=== PATIENT | female | born 1955 | race Caucasian/White ===

== ENCOUNTER → 2020-07-22 10:17 | Outpatient (CLI) | payer MEDICARE, SELFPAY ==
--- NOTE | 2020-07-22 | DI.MG.S_ITS ---
BILATERAL DIGITAL SCREENING MAMMOGRAM 3D/2D WITH CAD: 07/22/2020 CLINICAL: Routine screening. Comparison is made to exams dated: 01/13/2017 mammogram, 01/19/2018 mammogram, and 02/08/2019 mammogram - outside location. The tissue of both breasts is heterogeneously dense. This may lower the sensitivity of mammography. Current study was also evaluated with a Computer Aided Detection (CAD) system. No significant masses, calcifications, or other findings are seen in either breast. There has been no significant interval change. IMPRESSION: NEGATIVE There is no mammographic evidence of malignancy. A 1 year screening mammogram is recommended. This exam was interpreted at Station ID: [id number]. NOTE: For mammograms, a report in lay terms will be sent to the patient. Approximately 15% of breast malignancies will not be visualized mammographically. In the management of a palpable breast mass, a negative mammogram must not discourage biopsy of a clinically suspicious lesion. Electronically Signed By: Daniel ortega/maico:07/24/2020 07:41:21 letter sent: Normal Exam ACR BI-RADS Category 1: Negative 3341F
== END ==
PROVIDERS: PCP Physician Assistant; Referring Provider Physician Assistant; Visit Provider Physician Assistant
DX: Z12.31 Encounter for screening mammogram for malignant neoplasm of breast (principal)
CPT/HCPCS: 77063; 77067

== ENCOUNTER → 2020-12-04 12:53 | Outpatient (CLI) | payer MEDICARE, SELFPAY ==
[2020-12-04 16:24] LABS: COVID19 -Nasal RAPID Negative (Negative)
== END ==
PROVIDERS: PCP Physician Assistant; Visit Provider Student in an Organized Health Care Education/Training Program
DX: Z01.812 Encounter for preprocedural laboratory examination (principal); Z20.822 Contact with and (suspected) exposure to COVID-19
CPT/HCPCS: 87635; C9803

== ENCOUNTER → 2021-01-15 13:40 | Outpatient (CLI) | payer MEDICARE, SELFPAY ==
[2021-01-15 17:09] LABS: COVID19 -Nasal RAPID Negative (Negative)
== END ==
PROVIDERS: PCP Physician Assistant; Visit Provider Physician Assistant
DX: Z01.812 Encounter for preprocedural laboratory examination (principal); Z20.822 Contact with and (suspected) exposure to COVID-19
CPT/HCPCS: 87635; C9803

== ENCOUNTER 2021-01-17 12:40 | Day surgery (SDC) | payer MEDICARE, SELFPAY ==
--- NOTE | 2021-01-17 | PATH_ITS ---
[facility] Accession Number: [id number] . 01 Material submitted: . PART A: stomach - GASTRIC; GASTRIC POLYP PART B: esophagus - PROXIMAL/DISTAL ESOPHAGUS PART C: colon - RANDOM COLON PART D: colon - DESCENDING COLON POLYP . 01 Clinical history: . A) GASTRITITIS; RULE OUT H.PYLORI B) EOE C) DIARRHEA . 02 Diagnosis: A. Stomach, Polyp, Biopsy: Fundic gland polyp. Separate fragments of antral and body type mucosa with no significant diagnostic abnormality. Negative for Helicobacter by immunohistochemistry. Negative for intestinal metaplasia. Negative for dysplasia and malignancy. . B. Proximal/Distal, Esophagus, Biopsy: Squamous epithelium with no diagnostic abnormality. Intraepithelial eosinophils are not increased. Negative for dysplasia and malignancy. . C. Random Colon, Biopsies: Colonic mucosa with no diagnostic abnormality. Negative for active, chronic, and microscopic colitis. Negative for dysplasia and malignancy. . D. Descending Colon, Polyp, Biopsy: Hyperplastic polyp. [facility] 01/22/2021 1538 Local . 02 Electronically signed: . Loretta Mendiola MD, Pathologist NPI- [id number] . 01 Gross description: . Part A: GASTRIC; GASTRIC POLYP: Received in formalin are multiple fragment(s) of hooper, soft tissue measuring 1.0 x 0.4 x 0.1 cm in aggregate submitted entirely in 1 cassette(s) Part B: PROXIMAL/DISTAL ESOPHAGUS: Received in formalin are 3 fragment(s) of hooper, soft tissue measuring 0.4 x 0.2 x 0.1 cm to 0.2 x 0.2 x 0.2 cm submitted entirely in 1 cassette(s) Part C: RANDOM COLON: Received in formalin are multiple fragment(s) of hooper, soft tissue measuring 0.8 x 0.6 x 0.1 cm in aggregate submitted entirely in 1 cassette(s) Part D: DESCENDING COLON POLYP: Received in formalin is 1 fragment(s) of hooper, soft tissue measuring 0.2 x 0.2 x 0.2 cm submitted entirely in 1 cassette(s) /LAMAR 01/18/2021 0654 Local . 02 Microscopic: . A. An immunohistochemical stain was performed to evaluate for Helicobacter organisms and is negative. The control stain showed appropriate reactivity. . * This test was developed and its performance characteristics determined by [facility]. It has not been cleared or approved by the U.S. Food and Drug Administration. The FDA has determined that such clearance or approval is not necessary. This test is used for clinical purposes. It should not be regarded as investigational or for research. . 02 Pathologist provided ICD-10: R13.10, R19.7 . 02 CPT . 704620, 207133, 247314, 315085, Z22838 Performed at: 01 [facility] [address] [facility], [place], [place] [id number] MD Lew Castillo MD Phone: [phone] Performed at: 02 [facility] [place] [address] [address] [place], [place] [id number] MD Loretta Mendiola MD Phone: [phone]
[2021-01-17 13:13] VITALS: BP 153/87; PULSE 66; RESP 16; TEMP 36.4; O2SAT 98; BMI 43.5
[2021-01-17] MEDS: SODIUM CHLORIDE 0.9% 1,000 ML 70 ML IV (13:26)
--- NOTE | 2021-01-17 14:07 | PM.HP.1 ---
History of Present Illness History of Present Illness Date Patient Seen: 01/17/21 Time Patient Seen: 14:01 Chief complaint: SDC *$385 copay* Narrative: Patient is a very pleasant 65-year-old female who presented for EGD colonoscopy. She does have progressively worsening dysphagia. She also has a family history of gastric cancer in her grandmother. She is due for screening colonoscopy she also has chronic diarrhea. Patient History Medical History (Updated 01/17/21 @ 13:01 by Ayden Jimenez RN) Asthma Carpal tunnel syndrome Cyst of hand Dysphagia GE reflux Hypothyroidism Sarcoid Surgical History (Updated 01/17/21 @ 13:01 by Ayden Jimenez RN) History of hand surgery No history of previous surgery Status post trigger finger release Family & Social History Family History (Updated 01/17/21 @ 12:52 by Ayden Jimenez RN) Grandmother Stomach cancer Mother Hepatitis C Liver cancer Social History: household members significant other Tobacco & Substance use: Smoking Status Former smoker alcohol intake current alcohol intake frequency a few times a week Substance Use Type does not use Meds Home Medications and Allergies Home Medications Medication Instructions Recorded Confirmed Type azelastine 2 spray INTRANASAL BID 01/17/21 01/17/21 History clobetasol 1 applic TOPICAL PRN PRN 01/17/21 01/17/21 History esomeprazole magnesium [Nexium] 40 mg PO DAILY 01/17/21 01/17/21 History ipratropium bromide 2 spray INTRANASAL PRN PRN 01/17/21 01/17/21 History levothyroxine 50 mcg PO DAILY 01/17/21 01/17/21 History liothyronine 10 mcg PO DAILY 01/17/21 01/17/21 History losartan 25 mg PO DAILY 01/17/21 01/17/21 History metoprolol succinate 50 mg PO DAILY 01/17/21 01/17/21 History montelukast 10 mg PO DAILY 01/17/21 01/17/21 History nystatin 1 applic TOPICAL DAILY PRN 01/17/21 01/17/21 History pantoprazole 40 mg PO BEDTIME 01/17/21 01/17/21 History tacrolimus 1 applic TOPICAL PRN PRN 01/17/21 01/17/21 History Allergies Allergy/AdvReac Type Severity Reaction Status Date / Time gluten Allergy Blister Verified 01/17/21 12:51 morphine AdvReac I had Verified 01/17/21 12:46 morphine once and hated it. Review of Systems Review of Systems ROS: Yes All systems reviewed with the patient and are negative except as otherwise documented Exam Vital Signs (past 8 hours): - 01/17/21 13:13 Temperature 97.5 F L Pulse Rate 66 Respiratory Rate 16 Blood Pressure 153/87 H Pulse Oximetry 98 Oxygen Delivery Method Room Air Oxygen Flow Rate 0 Const General: cooperative, healthy appearing, comfortable and well developed Nutritional Appearance: obese Orientation: alert, awake and oriented x3 HENMT Head: normal to inspection, normocephalic and atraumatic Resp Effort & Inspection: normal respiratory effort and able to speak in complete sentences Auscultation: clear to auscultation bilaterally Cardio Rate: regular rate Rhythm: regular rhythm Heart Sounds: S1 normal and S2 normal GI Palpation: soft Auscultation: normal bowel sounds Psych Appearance: grossly normal Mental Status: mental status grossly normal Judgment: judgment good Assessment & Plan Assessment & Plan narrative: 1. Dysphagia 2. Family history gastric cancer 3. Screening colonoscopy 4. Chronic diarrhea EGD and colonoscopy today, further recommendations to follow
[2021-01-17] MEDS: LIDOCAINE 4% SOLN 50 ML 20 ML TOP (14:08)
[2021-01-17] MEDS: MIDAZOLAM 5 MG/5 ML VIAL IV (14:09)
[2021-01-17] MEDS: fentaNYL 250 MCG/5 ML INJ IV (14:09)
--- NOTE | 2021-01-17 14:42 | P.OP.ENDO_ITS ---
Operative Date/Time/Diagnoses Date of procedure: 01/17/21 Time of procedure: 14:11 Procedure Notes Procedure in detail: Surgeon: Veena Mims DO Procedure: Esophagogastroduodenoscopy with biopsy and colonoscopy with polypectomy and biopsies Preoperative diagnosis: 1. Esophageal dysphagia 2. Family history gastric cancer 3. Screening colonoscopy 4. Incidental chronic diarrhea Postoperative diagnosis: -gastritis, biopsied to rule out H pylori -gastric polyps -esophageal changes suspicious for eosinophilic esophagitis, biopsied -descending colon polyp 3 mm removed with forceps -normal-appearing colon mucosa biopsied to rule out microscopic colitis -normal-appearing terminal ileum Medications: Conscious sedation using 5 mg IV of Midazolam and 175 mcg IV of Fentanyl (total for both procedures) Preanesthesia Assessment An H and P was performed/updated and the Px?s ASA class is 2. The procedure was discussed in detail with the patient. The potential risks and complications including infection, bleeding, missed lesions, perforation, need for surgery in case of perforation, prolonged hospital stay, and were explained. A brief question and answer period was allotted and once all questions were answered, informed consent was obtained. The patient was brought back to the procedure room and placed on standard monitoring. The patient?s vital signs were monitored continuously throughout the entire procedure. Prior to starting, a timeout was performed to confirm the patient?s identity, allergies, medications, and procedure. Procedure in detail The patient was placed in left lateral decubitus position and a bite block was i nserted. The tip of the upper endoscope was placed into the mouth and advanced without difficulty under direct visualization into the esophagus. Esophagus: Esophageal mucosal changes suspicious for eosinophilic esophagitis. Biopsies of the distal and proximal esophagus were obtained. No stricture was identified Stomach: Gastritis in the antrum body. Biopsies were obtained to rule out H pylori. Multiple gastric polyps throughout the stomach were identified consistent with fundic gland polyps, biopsied Retroflexion was unremarkable Duodenum: Normal-appearing duodenum After the upper endoscopy, preparations were made for the colonoscopy. Once adequate sedation was obtained a HESHAM was performed. The digital rectal examination did not reveal any palpable lesions. The tip of the colonoscope was placed in the anal canal and advanced without difficulty all the way to the terminal ileum and cecum which was identified by the appendiceal orifice and the ileocecal valve. Colon mucosa appeared unremarkable. Random colon biopsies were obtained to rule out microscopic colitis. Terminal ileum appeared unremarkable. 3 mm polyp was identified in the descending colon removed with forceps. The patient tolerated the procedure well and will be brought back to the recovery area to be discharged once criteria are met. The prep was judged to be good/excellent and adequate to identify polyps less than 5 mm. The withdrawal time was 9 min. The total physician intraservice time was 25min. Complications There were no complications and estimated blood loss was minimal. Recommendations Resume previous diet Continue outpatient medications Follow-up pathology results Repeat colonoscopy will be determined after pathology results are reviewed Follow-up with Dr. Brown An emergency contact number was given to the patient for any complications related to the procedure
[2021-01-17 14:43] VITALS: BP 148/79; PULSE 62; RESP 16; TEMP 36.6; O2SAT 98
[2021-01-17 14:48] VITALS: BP 134/72; PULSE 66; RESP 16; O2SAT 98
[2021-01-17 14:54] VITALS: BP 140/76; PULSE 59; RESP 16; O2SAT 98
[2021-01-17 15:07] VITALS: BP 152/74; PULSE 64; RESP 16; O2SAT 98
[2021-01-17 15:17] VITALS: BP 155/85; PULSE 63; RESP 14; TEMP 36.3; O2SAT 100
== END 2021-01-17 15:30 | disposition home or self-care (01) ==
PROVIDERS: PCP Internal Medicine; Referring Provider Student in an Organized Health Care Education/Training Program; Visit Provider Student in an Organized Health Care Education/Training Program
PROC: 0DJ08ZZ Inspection of Upper Intestinal Tract, Via Natural or Artificial Opening Endoscopic (ICD-10-PCS; CPT 43235; principal; 2021-01-17 14:00)
PROC: 0DJD8ZZ Inspection of Lower Intestinal Tract, Via Natural or Artificial Opening Endoscopic (ICD-10-PCS; CPT 45378; 2021-01-17 14:00)
DX: Z12.11 Encounter for screening for malignant neoplasm of colon (principal); R13.10 Dysphagia, unspecified; K31.7 Polyp of stomach and duodenum; K63.5 Polyp of colon
CPT/HCPCS: 45380; 43239; J2250; J3010

== ENCOUNTER → 2021-07-23 14:56 | Outpatient (CLI) | payer MEDICARE, SELFPAY ==
--- NOTE | 2021-07-23 14:57 | DI.MG.S_ITS ---
BILATERAL DIGITAL SCREENING MAMMOGRAM 3D/2D WITH CAD: 07/23/2021 CLINICAL: Routine screening. Comparison is made to exams dated: 07/22/2020 mammogram - [facility], 02/08/2019 mammogram, and 01/21/2018 mammogram - outside location. The tissue of both breasts is heterogeneously dense. This may lower the sensitivity of mammography. Current study was also evaluated with a Computer Aided Detection (CAD) system. No significant masses, calcifications, or other findings are seen in either breast. There has been no significant interval change. IMPRESSION: NEGATIVE There is no mammographic evidence of malignancy. A 1 year screening mammogram is recommended. This exam was interpreted at Station ID: [id number]. NOTE: For mammograms, a report in lay terms will be sent to the patient. Approximately 15% of breast malignancies will not be visualized mammographically. In the management of a palpable breast mass, a negative mammogram must not discourage biopsy of a clinically suspicious lesion. Electronically Signed By: Mario Alberto Hui M.D., jr/maico:07/23/2021 15:23:56 letter sent: Normal Exam ACR BI-RADS Category 1: Negative 3341F
== END ==
PROVIDERS: PCP Nurse Practitioner; Referring Provider Nurse Practitioner; Visit Provider Nurse Practitioner
DX: Z12.31 Encounter for screening mammogram for malignant neoplasm of breast (principal)
CPT/HCPCS: 77063; 77067

== ENCOUNTER → 2022-04-19 11:41 | Outpatient (CLI) | payer MEDICARE, SELFPAY ==
--- NOTE | 2022-04-19 11:44 | DI.MRI.S_ITS ---
PROCEDURE: MR KNEE LT WO CON INDICATIONS: INTERNAL DERANGEMENT LEFT KNEE TECHNIQUE: Noncontrast sagittal PD fast spin echo and T2 fast spin echo with fat saturation, sagittal 3-D FLASH with fat saturation; coronal T1 spin echo and PD fast spin echo with fat saturation, and axial PD fast spin echo with fat saturation through the knee. COMPARISON: [facility], CR, XR KNEE ARTHRITIC SERIES BI, 03/06/2022, 10:57. FINDINGS: Image quality: Images are mildly degraded by patient motion despite repeat sequences being acquired. Diagnostic information is obtained. Anterior Cruciate Ligament: Intact. Posterior Cruciate Ligament: Intact. Medial Collateral Ligament: Mild thickening of the proximal medial collateral ligament is most likely secondary to a remote prior low-grade sprain. Lateral Collateral Ligament: Intact. Medial Meniscus: There is horizontal oblique tearing of the body of the medial meniscus extending to the inner third of the femoral articular surface. There is suspected component involving the tibial articular surface and the posterior horn. Lateral Meniscus: There is horizontal oblique tearing of the anterior horn of the lateral meniscus extending to the inner third of the tibial articular surface. Medial and Lateral Tendons: The semimembranosus tendon insertions and meniscocapsular junction appear intact. Visualized portions of the pes anserinus tendons appear normal. No abnormal bursal fluid. The long and short heads of the biceps femoris tendon appear intact. The popliteus tendon appears intact. No signs of posterolateral corner injury. Iliotibial band appears normal. Anterior Structures: Mild patella jackie. The quadriceps and patellar tendons appear intact. No patellar subluxation. A mildly congenitally shallow trochlear groove is seen without patellar subluxation. The tibial tubercle-trochlear groove distance is within normal limits. Mild edema is seen at the superolateral aspect of Hoffa's fat pad. Bones: No acute trabecular bone injury or fracture. Medial Femorotibial Cartilage: There is at least high-grade partial thickness and suspected full-thickness cartilage loss in the weight-bearing portion of the medial femorotibial compartment with marginal osteophyte formation, not well evaluated on this exam due to patient motion. Lateral Femorotibial Cartilage: Small marginal osteophytes are present. No large focal cartilage defect identified. Mild surface irregularity is seen in the central weight-bearing portion. Patellofemoral Cartilage: Full-thickness cartilage loss is seen at the median ridge and medial facet of the patella as well as the medial femoral trochlea with subchondral cystic changes and marginal osteophyte formation. Soft Tissues: There is a small joint effusion. A small to medium size medial popliteal cyst is present. The musculature surrounding the knee is normal in bulk. Nonspecific prepatellar subcutaneous soft tissue edema is present. IMPRESSION: 1. Full-thickness cartilage loss throughout large portions of the anterior patellofemoral compartment with subchondral cystic changes. At least grade 3 and likely grade 4 cartilage loss is seen in the medial femorotibial compartment. There is mild grade 2 chondromalacia at the lateral compartment. Tricompartmental marginal osteophytes are present. 2. Complex tearing of the medial meniscus with horizontal oblique component extending to the femoral and tibial articular surfaces. 3. Horizontal oblique tear of the anterior horn of the lateral meniscus extending to the inner third of the tibial articular surface. 4. Chronic grade 2 sprain of the proximal medial collateral ligament. 5. Mild patella jackie. Mildly congenitally shallow trochlear groove. Mild edema at the superolateral aspect of Hoffa's fat pad can be seen in the setting of lateral femoral condyle-patellar tendon friction syndrome. 6. Small joint effusion. Small medial popliteal cyst. Dictated by: Antione Cintron M.D. on 04/19/2022 at 13:33 Approved by: Antione Cintron M.D. on 04/19/2022 at 13:57
== END ==
PROVIDERS: PCP Nurse Practitioner; Referring Provider Orthopaedic Surgery; Visit Provider Orthopaedic Surgery
DX: S83.242A Other tear of medial meniscus, current injury, left knee, initial encounter (principal); M23.92 Unspecified internal derangement of left knee; M25.462 Effusion, left knee
CPT/HCPCS: 73721

== ENCOUNTER → 2022-08-28 14:34 | Outpatient (CLI) | payer MEDICARE, SELFPAY ==
[2022-08-28 14:56] LABS: Appearance Urine UA CLEAR; Bilirubin Urine UA NEGATIVE (NEGATIVE); Color Urine UA YELLOW; Glucose Urine UA NEGATIVE (Negative); Ketones Urine UA NEGATIVE (NEGATIVE); Leukocyte Esterase Urine UA NEGATIVE (NEGATIVE); Nitrite Urine UA NEGATIVE (Negative); Occult Blood Urine UA NEGATIVE (Negative); Protein Urine UA NEGATIVE (Negative); Specific Gravity Urine UA <=1.005 (1.000-1.035); Urobilinogen Urine UA 0.2 E.U./dL (0.2)
[2022-08-28 15:09] LABS: Bacteria Urine Few (2-10); Culture Indicated Urine Cult Not Indicated; RBC Urine None Seen (0-5/HPF); Squamous Epithelial Cell Urine 5-10 /HPF (0-5/HPF); WBC Urine 0-1/HPF (0-5/HPF)
[2022-08-28 15:33] LABS: Add Manual Diff / Slide Review NO; Basophils Absolute Auto 100 /uL (0-100); Basophils Percent Auto 1.1 % (0-2); Eosinophils Absolute Auto 200 /uL (0-450); Eosinophils Percent Auto 4.1 % (2-4); Hematocrit 40.6 % (36-46); Hemoglobin 13.6 g/dL (12.0-16.0); Lymphocytes Absolute Auto 1400 /uL (1100-4500); Lymphocytes Percent Auto 26.9 % (25-40); Mean Corpuscular HGB Conc 33.6 % (30-36); Mean Corpuscular Hemoglobin 30.6 PG (26-34); Mean Corpuscular Volume 91.1 fL (80-100); Monocytes Absolute Auto 500 /uL (0-900); Monocytes Percent Auto 8.8 % (3-14); Neutrophils Absolute Auto 3200 /uL (1500-7000); Neutrophils Percent Auto 59.1 % (50-75); Platelet Count 214 X10^3/uL (150-400); Red Blood Cell Count 4.46 X10^6/uL (4.0-5.2); Red Cell Distribution Width 14.4 % (11.6-14.8); White Blood Cell Count 5.4 X10^3/uL (4.5-11.0)
[2022-08-28 15:49] LABS: Hemoglobin A1C% w Est Avg Glu 5.3 % (4.0-6.0)
[2022-08-28 15:54] LABS: BUN Creatinine Ratio 18.7 (6-22); Blood Urea Nitrogen 14 mg/dL (7-17); Calcium 9.4 mg/dL (8.4-10.2); Carbon Dioxide 29 mmol/L (22-32); Chloride 105 mmol/L (98-107); Estimated Glomerular Filt Rate > 60 mL/min (>60); Glucose 100 mg/dL (80-110); HEMOLYSIS < 15 (0-50); Potassium 4.7 mmol/L (3.4-5.1); Sodium 141 mmol/L (137-145)
== END ==
PROVIDERS: PCP Nurse Practitioner; Referring Provider Orthopaedic Surgery; Visit Provider Orthopaedic Surgery
DX: Z01.818 Encounter for other preprocedural examination (principal); R73.9 Hyperglycemia, unspecified; Z01.812 Encounter for preprocedural laboratory examination; N39.0 Urinary tract infection, site not specified
CPT/HCPCS: 36415; 80048; 81001; 83036; 85025; 93005

== ENCOUNTER → 2022-09-16 14:16 | Outpatient (CLI) | payer MEDICARE, SELFPAY ==
--- NOTE | 2022-09-16 | DI.MG.S_ITS ---
BILATERAL DIGITAL SCREENING MAMMOGRAM 3D/2D WITH CAD: 09/16/2022 CLINICAL: Routine screening. Comparison is made to exams dated: 07/23/2021 mammogram, 07/22/2020 mammogram - [facility], and 02/08/2019 mammogram - outside location. There are scattered areas of fibroglandular density in both breasts (category b / 25%-50% glandular tissue). Current study was also evaluated with a Computer Aided Detection (CAD) system. No significant masses, calcifications, or other findings are seen in either breast. There has been no significant interval change. IMPRESSION: NEGATIVE There is no mammographic evidence of malignancy. A 1 year screening mammogram is recommended. Based on the Tyrer Cuzick model (a risk assessment model) the patient's lifetime risk is 4.7% and her 10 year risk is 2.7%. According to the ACR, ACS, and NCCN guidelines, an annual breast MRI exam along with mammogram is recommended if the patient's lifetime risk is 20% or greater. This exam was interpreted at Station ID: [id number]. NOTE: For mammograms, a report in lay terms will be sent to the patient. Approximately 15% of breast malignancies will not be visualized mammographically. In the management of a palpable breast mass, a negative mammogram must not discourage biopsy of a clinically suspicious lesion. Electronically Signed By: Antonio michelle/maico:09/16/2022 15:23:31 letter sent: Normal Exam ACR BI-RADS Category 1: Negative 3341F
== END ==
PROVIDERS: PCP Nurse Practitioner; Referring Provider Nurse Practitioner; Visit Provider Nurse Practitioner
DX: Z12.31 Encounter for screening mammogram for malignant neoplasm of breast (principal)
CPT/HCPCS: 77063; 77067

== ENCOUNTER 2022-10-31 09:12 | Day surgery (SDC) | payer OTHER, SELFPAY ==
[2022-10-24 12:41] VITALS: BMI 40.9
[2022-10-31] VITALS (13 sets, daily range): BP systolic 108–172; BP diastolic 55–89; PULSE 64–83; RESP 12–20; TEMP 35.5–36.2; O2SAT 96–99; BMI 40.9; BMI 41.5
--- NOTE | 2022-10-31 06:00 | DI.RAD.S_ITS ---
PROCEDURE: XR KNEE LT 1TO2V INDICATIONS: TKA TECHNIQUE: 2 view(s) of the knee acquired. COMPARISON: None. FINDINGS: Bones: Patient is status post knee joint arthroplasty. Hardware components are in expected positions. Visualized bony structures are intact. Soft tissues: Overlying postoperative changes are noted. IMPRESSION: Status post knee arthroplasty. Dictated by: Melani Coulter M.D. on 10/31/2022 at 13:02 Approved by: Melani Coulter M.D. on 10/31/2022 at 13:02
[2022-10-31] MEDS: VANCOMYCIN 1,000 MG/200 ML PIGGYBACK 200 MG IV (09:32)
[2022-10-31] MEDS: LACTATED RINGERS 1,000 ML 42 ML IV (09:32)
[2022-10-31] MEDS: ACETAMINOPHEN 325 MG TABLET 975 MG PO (09:43)
[2022-10-31] MEDS: PREGABALIN 75 MG CAPSULE PO (09:44)
[2022-10-31] MEDS: CELECOXIB 200 MG CAPSULE PO (09:44)
--- NOTE | 2022-10-31 10:09 | PM.PREOP ---
Pre-operative Note Interval Note History & Physical reviewed/Exam performed by Physician: Yes Changes to H&P: No
--- NOTE | 2022-10-31 10:10 | PM.OP.1 ---
Operative Date/Time/Diagnoses Date of procedure: 10/31/22 Time of procedure: 11:00 Pre-op diagnosis: Left knee OA Post-op diagnosis: same Procedure & Clinicians Procedure: Left total knee arthroplasty Same procedure as scheduled: Yes Indications: The patient has had progressively worsening left knee pain with radiographic changes consistent with arthritis. Non-operative management has failed and the patient has requested total knee replacement. The risks, benefits and alternatives to surgery were discussed with the patient prior to proceeding. Risks discussed included, but were not limited to, failure to relieve pain, stiffness, infection, nerve damage, deep venous thrombosis, pulmonary embolism, stroke, coma, heart attack, permanent paralysis and , as well as the potential need for eventual revision of the prosthetic. Surgeon: Olivia Regalado Live Hanger: Benton Hernandez Anesthesia Type: General and Spinal Operative Notes Findings: Severe left knee osteoarthritis, adequate stability Closure Type: primary Specimen(s): none sent Prosthetic devices, grafts, tissues, transplants, or devices: Regalado and Nephew James BCS 2 size 4 femur, size 3 tibia, +9 poly, 32 x 7-1/2 mm patella round Estimated Blood Loss (mL): 250 Blood products transfused: none Tourniquet time (min): 67 Procedure in detail: The patient was seen in the pre-operative area, where the patient identified the left knee as the operative site and this was marked with my initials. The patient received pre-operative antibiotics, and was taken to the operating room and placed on the operative table in the supine position. After satisfactory anesthesia, a full decator operator out was performed. The left leg was encircled with a tourniquet about the proximal thigh, and the leg was prepared from the toes to the tourniquet with ChloroPrep in the usual fashion and draped through sterile drapes. The leg was elevated and exsanguinated with Eschmark bandage and the tourniquet inflated to [250] mmHg pressure. The knee was approached through an approximately 18 cm incision centered over the patella and carried into the knee through a medial parapatellar arthrotomy. A portion of the medial and lateral meniscus was resected. Soft tissue was carefully mobilized around the patella the patella was measured with a caliper. Bone was resected from the patella and the patellar height was reconstituted with up an appropriate sized patellar component. A cover was then placed on the patella. A small amount of additional medial and lateral meniscus was resected. The distal femur was cut at 5?. A [+2] cut was used. It looked like an appropriate distal femoral cut and the cut was made without difficulty. An extramedullary guide was used for the tibial cut. 10 mm was resected off the least affected side.The tibia was prepared. The rotation was assessed. The patient was placed in extension residual medial and lateral meniscus as well as any residual bone was carefully resected. [No] additional tibia was resected. Hemostasis was achieved especially posteriorly. Additional local was injected into the posterior capsule. The extension gap was assessed and additional releases for gap balancing were performed as necessary. It was checked with the gap plain clothes police officer. The femoral component was trial was placed and the notch was finished. The rotation was assessed and the appropriate size femoral guide was placed on the distal femur and finishing cuts were made. There was no evidence of notching. The anterior, posterior and chamfer cuts were then made. The posterior osteophytes and soft tissues were then removed. The posterior capsule was injected with part of a mixture of 60 ml 0.25% Marcaine mixed with 20 ml Exparel for post operative pain control. The remainder of this mixture was injected into the capsule and subcutaneous tissues during cement curing. The tibial and femoral components were then placed and the knee placed through a range of motion. Range of motion was [0-130], with good stability throughout the range. The trials were then removed, and the tibia was finished. The bone was prepared with pulsatile lavage, and dried with a sponge. Cement was applied and the final prosthetics placed. Excess cement was removed during and after cement curing. A brief Betadine soak was performed. After confirming there was no extruded cement posteriorly, the final tibial insert was placed. The knee was copiously irrigated and the tourniquet deflated. Hemostasis was obtained with the [Aquamantys system]. A drain was placed and brought out superolaterally. The capsule was closed with interrupted nonabsorbable suture. The subcutaneous layer was closed with barbed sutures, and the skin with a running 3-0 V-Lock suture and skin ja. An Aquacel Ag dressing was applied and the patient was taken to recovery having tolerated the procedure well. Complications: none Post-operative Condition: stable Disposition: Acute Care Plan for aftercare: The patient will be maintained on a standard total knee replacement protocol with weight bearing as tolerated. The patient will receive aspirin and sequential compression devices for DVT prophylaxis. The patient will be discharged home when safe for the home environment.
[2022-10-31 10:38] LABS: COVID19 -Nasal RAPID Negative (Negative)
[2022-10-31] MEDS: CEFAZOLIN 2 GM/100 ML PREMIX 100 ML IV ×2 (10:50→18:34)
[2022-10-31] MEDS: TRANEXAMIC ACID 1,000 MG VIAL 2000 MG INJ ×2 (11:01→12:11)
--- NOTE | 2022-10-31 11:07 | SUR.OPER ---
Supine on padded OR bed. Pillow under head, arms secured on padded armboards <90 degree abduction. Safety belt across torso. Non-operative leg secured with tape over blanket over lower leg. Operative leg secured in [place]. Foam padded brace at thigh of operative leg.
[2022-10-31] MEDS: BUPIVACAINE 0.25% (PF) 60 ML, EPINEPHrine 0.3 MG INJ (11:14)
[2022-10-31] MEDS: BUPIVACAINE LIPOSOME 266 MG/20 ML VIAL INJ (11:14)
[2022-10-31] MEDS: BUPIVACAINE 0.25% (PF) VIAL 30 ML INJ (11:17)
[2022-10-31] MEDS: IBUPROFEN 400 MG TABLET PO ×3 (13:59→20:10)
[2022-10-31] MEDS: ACETAMINOPHEN 325 MG TABLET 650 MG PO ×2 (14:00→20:02)
[2022-10-31] MEDS: LACTATED RINGERS 1,000 ML 100 ML IV (14:04)
[2022-10-31] MEDS: ONDANSETRON 4 MG/2 ML INJ IV (16:24)
[2022-10-31] MEDS: OXYCODONE IR 5 MG TABLET PO ×2 (16:59→20:01)
--- NOTE | 2022-10-31 17:35 | PT.IIE ---
Current Diagnoses Unilateral primary osteoarthritis, left knee (10/31/22) Surgery Performed Operation Date: 10/31/22 11:15 Actual Procedures p Total Knee Arthroplasty(Left) - Olivia Regalado MD Surgical History (Last Updated 10/24/22 @ 13:29 by Oriana Russell, RN) History of carpal tunnel surgery of left wrist (11/2013) History of carpal tunnel surgery of right wrist (09/2013) History of esophagogastroduodenoscopy (EGD) History of hand surgery (2011) Hx of hand surgery (09/2017) Hx of LASIK Hx of nasal septoplasty (01/25/22) Status post trigger finger release Medical History (Last Updated 10/24/22 @ 13:39 by Oriana Russell, RN) Acid reflux Asthma Carpal tunnel syndrome Cyst of hand Dysphagia GE reflux History of COVID-19 (~06/2022) HTN (hypertension) Hypothyroidism FRANCISCO on CPAP Osteoarthritis Pre-diabetes Sarcoid Scar tissue Sensitive skin Skin cancer Physical Therapy Inpatient Evaluation/Re-Eval M1 PT/OT-IP Prior Functional Status Start: 10/31/22 16:35 Freq: NEEDED Status: Active Protocol: Document 10/31/22 17:25 [facility] (Rec: 10/31/22 17:35 [facility] [id number]) Medical Review Prior Functional Status Medical History Reviewed Yes Diet/Fluid Consistency Regular Communication communication with nurse during treatment, pt given her pain meds Mobility and Gait IND Social History Household Members significant other Living Arrangements House Number of Floors (Floors) One Floor Number of Stairs To Enter/Railing? 3 Home Environment Standard Height Toilet Home Equipment Front Wheel Walker M2 PT-IP Current Condition Start: 10/31/22 16:35 Freq: NEEDED Status: Active Protocol: Document 10/31/22 17:25 [facility] (Rec: 10/31/22 17:35 [facility] [id number]) Physical Therapy Current Condition Current Condition Evaluation Date 10/31/22 Treatment Diagnosis left TKA Onset Date 10/31/22 M3 PT-IP Subjective Start: 10/31/22 16:35 Freq: NEEDED Status: Active Protocol: Document 10/31/22 17:25 [facility] (Rec: 10/31/22 17:35 [facility] [id number]) Subjective Physical Therapy Visit Type Type Initial Evaluation Visit Start Time 16:35 Visit Stop Time 17:15 Total Visit Minutes 40 Physical Therapy Visit Comments Patient Comments pt is sitting up in bed comfortably, she rates pain 3/ 10 Therapy Pain Assessment Pain When Pain Assessed At Rest Pain Present Pain Present Pain Reported Location left knee Intensity 3 Scale Used Numeric (0 - 10) M4 PT-IP Mobility and Gait Start: 10/31/22 16:35 Freq: NEEDED Status: Active Protocol: Document 10/31/22 17:25 [facility] (Rec: 10/31/22 17:35 [facility] [id number]) PT-Bed Mobility Assessment Rolling Type of Rolling Roll to Left Level of Assist Standby Assistance Supine to Sit Supine to Sit Standby Assistance Scooting Scooting to Edge of Bed Contact Guard Assistance PT-Transfer Assessment Sit to and From Stand Sit to and from Stand Contact Guard Assistance Equipment Transfer Assistive Device Gait Belt,Front Wheeled Walker Orthotic/Prosthetic Devices or Brace: No Transfers Transfer Destination Bed Transfer Technique pt ambulated to bathroom and then bedside chair Transfer Ability Level of Assist Contact Guard Assistance Comments Mobility Comments pt demonstrates CGA for all upright mobility, she ambualted to the bathroom and had a successful void then ambulated to bed side chair. Gait Assessment Gait Gait Assistance Required: Contact Guard Assist Distance (Feet) 15 Able to Maintain Weight Bearing Status Yes During Gait Assistive Devices Assistive Device Gait Belt,Front Wheeled Walker Orthotic/Prosthetic Devices or Brace: No Gait Deviations General Gait Pattern Decreased Stride Length,Step- to Gait Factors Limiting Gait Function Factors Limiting Gait Function Decreased Strength,Limited Range of Motion,Pain Comments Gait Comments pt was able to ambulate in room with CGA and no additional pain using a fww and gait belt. She ambulated to the bathroom and then to the bedside chair PT-Balance Assessment Sitting Balance and Reactions Static Sitting Balance Ability Normal Dynamic Sitting Balance Ability Normal Standing Balance and Reactions Static Standing Balance Ability Good Dynamic Standing Balance Ability Good M5 PT-IP Objective Assessments Start: 10/31/22 16:35 Freq: NEEDED Status: Active Protocol: Document 10/31/22 17:25 [facility] (Rec: 10/31/22 17:35 [facility] [id number]) Orientation Orientation/Cognition Level of Alertness Alert Gross Range of Motion Upper Extremity ROM Assessment Within Functional Limits Lower Extremity ROM Assessment Left Impaired Strength Upper Extremity Strength Assessment Within Functional Limits Lower Extremity Strength Assessment Left Impaired Coordination Assessment Gross Coordination Gross Coordination WNL Sensation Assessment Sensation Gross Sensation WNL M6 PT-IP Treatment Start: 10/31/22 16:35 Freq: NEEDED Status: Active Protocol: Document 10/31/22 17:25 [facility] (Rec: 10/31/22 17:35 [facility] [id number]) Physical Therapy Treatment Exercises Exercises Ankle Pumps,Quad Sets,Heel Slides,Straight Leg Raises Education Education Provided Post-Op Packet M7 PT-IP Assessment and Plan Start: 10/31/22 16:35 Freq: NEEDED Status: Active Protocol: Document 10/31/22 17:25 [facility] (Rec: 10/31/22 17:35 [facility] [id number]) PT Summary Assessment and Plan Potential Rehabilitation Potential Excellent Status of Condition at Evaluation Stable Summary Impairments Pain,ROM,Strength,Gait, Activity Tolerance Assessment Summary Yuli is a 67 year old female day one s/o left TKA. Pt did very well with PT. Her pain was a 3/10 at rest and did not increase with bed mobility, transfers, or gait. Pt was SBA for all bed mobility and CGA for gait in room with fww. She ambulated to the bathroom and was able to sit on the toilet to void. Pt then ambulated to the bed side chair where she was positioned comfortably and ice was placed on her left knee. Her dinner was delivered and tray was placed within reach for her as well as her call light. Pt has 3 steps to get up to her house with rail. She will need to practice stairs in the am prior to DC with PT. Her daughter will be staying with her this next week at home and she then has outpatient PT set up for the following week Goals Bed Mobility Goal Independent Transfer Goal Standby Assistance Gait Goal Contact Guard Assistance Gait Distance 50 feet Other Goals pt is able to ambulate up and down 3 steps Days to Meet Goals 5 Frequency of Treatment Frequency Of Treatment Twice a Day Treatment Plan Physical Therapy Treatment Plan Transfer Training,Gait Training,Therapeutic Exercise Other Recommendations and Next Treatment stair training next visit Focus prior to DC home Weight Bearing Status Weight Bearing Status Weight Bear as Tolerated Recommendations To Nursing Amount of Assist Needed Standby Assistance Discharge Recommendations PT Discharge Recommendations Home Transportation Needs at Discharge Private Vehicle
[2022-10-31] MEDS: DOCUSATE 100 MG CAPSULE PO (20:09)
[2022-10-31] MEDS: ASPIRIN EC 81 MG TABLET PO (20:09)
[2022-10-31] MEDS: LOSARTAN 25 MG TABLET PO (20:10)
[2022-10-31] MEDS: PANTOPRAZOLE DR 40 MG TABLET PO (20:50)
[2022-11-01 00:21] VITALS: BP 146/71; PULSE 75; RESP 18; TEMP 36.1; O2SAT 93
[2022-11-01] MEDS: OXYCODONE IR 5 MG TABLET PO ×4 (00:28→12:56)
[2022-11-01] MEDS: IBUPROFEN 400 MG TABLET PO ×4 (00:28→12:55)
[2022-11-01] MEDS: ACETAMINOPHEN 325 MG TABLET 650 MG PO ×3 (00:31→12:56)
[2022-11-01] MEDS: CEFAZOLIN 2 GM/100 ML PREMIX 100 ML IV (03:12)
[2022-11-01 05:02] VITALS: BP 132/67; PULSE 68; RESP 18; TEMP 36.2; O2SAT 97
[2022-11-01] MEDS: LEVOTHYROXINE 50 MCG TABLET PO (05:41)
[2022-11-01] MEDS: PANTOPRAZOLE DR 40 MG TABLET PO (05:41)
[2022-11-01 06:08] LABS: Hematocrit 36.7 % (36-46); Hemoglobin 12.6 g/dL (12.0-16.0)
--- NOTE | 2022-11-01 06:49 | PM.DS.1 ---
History of Present Illness History of Present Illness Date Patient Seen: 11/01/22 Time Patient Seen: 06:49 Chief complaint: Left Total Knee Arthroplasty 10/31 Narrative: Operative Date/Time/Diagnoses Date of procedure: 10/31/22 Time of procedure: 11:00 Pre-op diagnosis: Left knee OA Post-op diagnosis: same Procedure & Clinicians Procedure: Left total knee arthroplasty Same procedure as scheduled: Yes Indications: The patient has had progressively worsening left knee pain with radiographic changes consistent with arthritis. Non-operative management has failed and the patient has requested total knee replacement. The risks, benefits and alternatives to surgery were discussed with the patient prior to proceeding. Risks discussed included, but were not limited to, failure to relieve pain, stiffness, infection, nerve damage, deep venous thrombosis, pulmonary embolism, stroke, coma, heart attack, permanent paralysis and , as well as the potential need for eventual revision of the prosthetic. Surgeon: Olivia Regalado Scientific Programmer: Benton Hernandez Anesthesia Type: General and Spinal Operative Notes Findings: Severe left knee osteoarthritis, adequate stability Closure Type: primary Specimen(s): none sent Prosthetic devices, grafts, tissues, transplants, or devices: Regalado and Nephew James BCS 2 size 4 femur, size 3 tibia, +9 poly, 32 x 7-1/2 mm patella round Estimated Blood Loss (mL): 250 Blood products transfused: none Tourniquet time (min): 67 Discharge Providers Provider Discharge Date: 11/01/22 Primary care physician: MAIKOL Juares Consults: 10/31/22 06:00 Consult to Anesthesiology Routine Comment: Consulting Provider: Anesthesiologist Reason for consultation: Regional block for post operative pain control 10/31/22 13:03 Consult to Discharge Planning Routine Comment: Consult to Physical Therapy Evaluate & Treat Comment: Physician Instructions: postop TKA protocol Discharge provider: Beth Orourke PA-C Summary Hospital Course Discharge Diagnosis: Left knee osteoarthritis, s/p left total knee arthroplasty Hospital Course: Ms Mendieta's hospital course was unremarkable. On POD# 1 she was feeling well and wanted to go home. She was eating and voiding without difficulty and her pain was well-controlled with oral medication. She was evaluated by PT during her stay and they felt she was appropriate for discharge home. Exam Vital Signs (past 8 hours): - 11/01/22 00:21 11/01/22 05:02 Temperature 96.9 F L 97.1 F L Pulse Rate 75 68 Respiratory Rate 18 18 Blood Pressure 146/71 H 132/67 Pulse Oximetry 93 97 Oxygen Delivery Method Room Air Oxygen Flow Rate 0 Narrative Exam Narrative: 5/5 strength in hip flexors, quadriceps, hamstrings, DF, PF, EHL on left. Sensation to light touch intact throughout LLE. Calves soft, compressible, nontender and without palpable cords or masses. JANESSA dressing functioning, CDI. Objective Labs 11/01/22 05:41 Labs: Laboratory Results - last 24 hr 10/31/22 11/01/22 09:20 05:41 Hgb 12.6 Hct 36.7 SARS-CoV-2 (PCR) Negative PFSH Medical History (Updated 10/24/22 @ 13:39 by Oriana Russell RN) Acid reflux Asthma Carpal tunnel syndrome Cyst of hand Dysphagia GE reflux History of COVID-19 (~06/2022) HTN (hypertension) Hypothyroidism FRANCISCO on CPAP Osteoarthritis Pre-diabetes Sarcoid Scar tissue Sensitive skin Skin cancer Surgical History (Updated 10/24/22 @ 13:29 by Oriana Russell RN) History of carpal tunnel surgery of left wrist (11/2013) History of carpal tunnel surgery of right wrist (09/2013) History of esophagogastroduodenoscopy (EGD) History of hand surgery (2011) Hx of hand surgery (09/2017) Hx of LASIK Hx of nasal septoplasty (01/25/22) Status post trigger finger release Family History (Updated 01/17/21 @ 12:52 by Ayden Jimenez RN) Grandmother Stomach cancer Mother Hepatitis C Liver cancer Social History household members: significant other Smoking Status: Former smoker alcohol intake: current Discharge Assessment & Plan Assessment and Plan Assessment: Left knee osteoarthritis, s/p left total knee arthroplasty Plan of Treatment: Discharge home. Pt has postop meds at home. ASA BID x 6 weeks for VTE prophylaxis, outpt PT, f/u in office in 2 weeks. Discharge Plan Discharge Plan Patient Disposition: Home Discharge orders & Medications Discharge Orders: Discharge (Order); Ordered 11/01/22 Ordered By: Beth Orourke Prescriptions: Continued liothyronine 5 mcg Tablet 10 mcg PO DAILY montelukast 10 mg Tablet 10 mg PO DAILY ipratropium bromide 21 mcg (0.03 %) [place],Non-Aerosol 2 spray INTRANASAL PRN PRN (Reason: allergies) esomeprazole magnesium [Nexium] 20 mg Capsule,Delayed Release(Dr/Ec) 40 mg PO DAILY metoprolol succinate 50 mg Tablet Extended Release 24 Hr 50 mg PO DAILY clobetasol 0.05 % Cream 1 applic TOPICAL PRN PRN (Reason: Rash) levothyroxine 50 mcg Tablet 50 mcg PO DAILY pantoprazole 40 mg Tablet,Delayed Release (Dr/Ec) 40 mg PO BEDTIME losartan 25 mg Tablet 25 mg PO BID azelastine 137 mcg (0.1 %) Aerosol,[place] 2 spray INTRANASAL BID estradiol 0.01 % (0.1 mg/gram) Cream 1 g VAGINAL 3XW acetaminophen 500 mg Tablet 975 mg PO BEDTIME Follow up/Referrals: Bonnie Schmitz ARNP [Primary Care Provider] - Olivia Regalado MD [Physician] - As previously scheduled (Follow up w/ Beth Orourke PA-C, on 11/15/2022 @ 11:30 am at [facility].) Diet/Activity/Treatments Diet: Diet as Tolerated Activity: Walk frequently! Cold/Heat Therapy: Ice to knee as needed for pain. Skin/Wound/Dressing Care Report to your healthcare provider any signs of infection, such as:: chills, fever, night sweats, unusual drainage and unusual redness Dressing: May remove YESIKA wrap and shower on 11/03/2022. Leave JANESSA dressing in place until follow up in office. When battery light starts flashing in 5-7 days, may cut off battery pack and dispose of it. No bathing or otherwise soaking incision. Call the office if the dressing becomes saturated inside. May wear compression socks over dressing/YESIKA wrap if desired. Visit Report/Discharge Packet Instructions: DI for Knee Replacement Stand Alone Forms: Patient Portal/API, Surgery Discharge Discharge Data Primary Care Provider: Bonnie Schmitz Attending Provider: Olivia Regalado Quality VTE Deep Vein Thrombosis/Pulmonary Embolism Present on Admission: No
[2022-11-01 08:14] VITALS: BP 118/64; PULSE 69; RESP 18; TEMP 36.2; O2SAT 100
[2022-11-01] MEDS: DOCUSATE 100 MG CAPSULE PO (09:04)
[2022-11-01] MEDS: MONTELUKAST 10 MG TABLET PO (09:04)
[2022-11-01] MEDS: ASPIRIN EC 81 MG TABLET PO (09:04)
--- NOTE | 2022-11-01 09:18 | PT.IPTN ---
Current Diagnoses Unilateral primary osteoarthritis, left knee (10/31/22) Surgery Performed Operation Date: 10/31/22 11:15 Actual Procedures p Total Knee Arthroplasty(Left) - Olivia Regalado MD Physical Therapy Treatment Note M2 PT-IP Current Condition Start: 10/31/22 16:35 Freq: NEEDED Status: Active Protocol: Document 11/01/22 08:50 [facility] (Rec: 11/01/22 09:39 [facility] [id number]) Physical Therapy Current Condition Current Condition Evaluation Date 10/31/22 Treatment Diagnosis left TKA Onset Date 10/31/22 M3 PT-IP Subjective Start: 10/31/22 16:35 Freq: NEEDED Status: Active Protocol: Document 11/01/22 08:50 [facility] (Rec: 11/01/22 09:39 [facility] [id number]) Subjective Physical Therapy Visit Type Type Treatment Note Visit Start Time 08:50 Visit Stop Time 09:18 Total Visit Minutes 28 Notes Spoke with RN prior to entering room, noted pt was due pain meds, but would be a few minutes. Checked with pt, pt wanted to get up and try steps so she can go home, not concerned about pain levels. Physical Therapy Visit Comments Patient Comments Pt propped up in bed, very agreeable to therapy. Therapy Pain Assessment Pain When Pain Assessed At Rest Pain Present Pain Present Pain Reported Location left knee Intensity 4 Scale Used Numeric (0 - 10) M4 PT-IP Mobility and Gait Start: 10/31/22 16:35 Freq: NEEDED Status: Active Protocol: Document 11/01/22 08:50 [facility] (Rec: 11/01/22 09:39 [facility] [id number]) PT-Bed Mobility Assessment Rolling Type of Rolling Roll to Left Level of Assist Standby Assistance Supine to Sit Supine to Sit Standby Assistance Scooting Scooting to Edge of Bed Standby Assistance PT-Transfer Assessment Sit to and From Stand Sit to and from Stand Standby Assistance Equipment Transfer Assistive Device Gait Belt,Front Wheeled Walker Orthotic/Prosthetic Devices or Brace: No Comments Mobility Comments SBA with all mobility, did not require any assistance with moving L LE, shows good quad control Gait Assessment Gait Gait Assistance Required: Standby Assistance Distance (Feet) 100 Able to Maintain Weight Bearing Status Yes During Gait Assistive Devices Assistive Device Gait Belt,Front Wheeled Walker Orthotic/Prosthetic Devices or Brace: No Gait Deviations General Gait Pattern Antalgic,Decreased Stride Length,Flexed Trunk Factors Limiting Gait Function Factors Limiting Gait Function Decreased Strength,Limited Range of Motion,Pain Comments Gait Comments Pt ambulated from bedside out into hallway and to therapy stairs using FWW, SBA. Stair Climbing Assessment Evaluation Level of Assist On Stairs Standby Assistance Devices Stair Climbing Assistive Devices Left Railing,Right Railing Technique/Endurance Stair Climbing Direction Ascend and Descend Stair Climbing Technique Step to Step Number of Steps Climbed 3 Comments Stair Climbing Comments Pt able to ascend/descend stairs with proper step-to technique with no verbal cues. M5 PT-IP Objective Assessments Start: 10/31/22 16:35 Freq: NEEDED Status: Active Protocol: Document 10/31/22 17:25 [facility] (Rec: 10/31/22 17:35 [facility] [id number]) Orientation Orientation/Cognition Level of Alertness Alert Gross Range of Motion Upper Extremity ROM Assessment Within Functional Limits Lower Extremity ROM Assessment Left Impaired Strength Upper Extremity Strength Assessment Within Functional Limits Lower Extremity Strength Assessment Left Impaired Coordination Assessment Gross Coordination Gross Coordination WNL Sensation Assessment Sensation Gross Sensation WNL M6 PT-IP Treatment Start: 10/31/22 16:35 Freq: NEEDED Status: Active Protocol: Document 10/31/22 17:25 [facility] (Rec: 10/31/22 17:35 [facility] [id number]) Physical Therapy Treatment Exercises Exercises Ankle Pumps,Quad Sets,Heel Slides,Straight Leg Raises Education Education Provided Post-Op Packet M7 PT-IP Assessment and Plan Start: 10/31/22 16:35 Freq: NEEDED Status: Active Protocol: Document 11/01/22 08:50 [facility] (Rec: 11/01/22 09:39 [facility] [id number]) PT Summary Assessment and Plan Summary Impairments Pain,ROM,Strength,Gait, Activity Tolerance Assessment Summary Pt initially did very well, excited to get up and try stairs in hopes of discharging home. Pt did well walking in hallway to stairs and ascending/descending 3 stairs, all SBA, using FWW during gait and railing on stairs. Upon completing stairs and attempting to return to her room, pt ambulated 15 feet, then noted feeling very lightheaded and felt she was sweating. Therapist got patient into w/c and returned to room. Pt's BP was measured to be 69/31 sitting in w/c, RN entered room. BP was remeasured, remained low at 73 /35. Pt was assisted back to bed Min Ax1 due to light- headedness, bed mobility performed SBA. After return to supine, BP raised to 107/50. RN kept informed entire time. Pt left with call myles within reach and ice on surgical knee , RN noted she would be contacting hospitalist regarding BP drop. Pt has met PT goals, but if judged to not be stable medically due to drop in BP, and does not d/c today, should be seen again with PT to test activity tolerance and gait while maintaining appropriate BP. Goals Bed Mobility Goal Independent Transfer Goal Standby Assistance Gait Goal Contact Guard Assistance Gait Distance 50 feet Other Goals pt is able to ambulate up and down 3 steps Days to Meet Goals 5 Frequency of Treatment Frequency Of Treatment Twice a Day Treatment Plan Physical Therapy Treatment Plan Transfer Training,Gait Training,Therapeutic Exercise Weight Bearing Status Weight Bearing Status Weight Bear as Tolerated Recommendations To Nursing Amount of Assist Needed Standby Assistance Discharge Recommendations PT Discharge Recommendations Home Transportation Needs at Discharge Private Vehicle
[2022-11-01 09:46] VITALS: BP 73/35; PULSE 54
[2022-11-01 09:47] VITALS: BP 73/35; PULSE 54
[2022-11-01] MEDS: LIOTHYRONINE 5 MCG TABLET 10 MCG PO (10:29)
[2022-11-01] MEDS: SODIUM CHLORIDE 0.9% 500 ML 1000 ML IV (11:49)
--- NOTE | 2022-11-01 11:52 | CM.DANOTE ---
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 BF Original Note: Patient is a 67 yo female who was admitted on 10/31/22 for LTKA. Pt has [facility] for insurance and her PCP is Bonnie Schmitz. EMR was reviewed. Per Ortho PA, pt tolerated procedure well and likely may d/c home today but having some bp issues and will get some fluids to confirm pt stable for d/c. Per PT, pt able to do stairs and recommend safe d/c home with Sig Other assist and outpt PT as long as bp stable. SW met bedside with pt and Sig Other and explained role and she confirms they live in [place] and pt is independent at baseline with ADLs, drives, and not currently working. Pt confirms that Sig Other available for assist and transport at d/c and pt was very hopeful to d/c home before lunchtime but aware she will be getting fluids this morning towards confirming bp stable. Pt preference is home with Sig Other and already has outpt PT set up. Plan: SW to follow for plan of d/c home with Sig Other assist and outpt PT once bp and vitals stable. SHELLY Arnett Discharge Planning/Care Management CM Discharge Assessment Start: 11/01/22 11:50 Freq: Status: Active Protocol: Document 11/01/22 11:50 BF (Rec: 11/01/22 11:52 [id number]) Discharge Planning Assessment Assigned Political Science Faculty Member SHELLY Moyer DPOA/Assigned Designee Name Dtr Advance Directives? Yes Advance Directives on File No History Provided By Patient,Significant Other, Medical Record Has Patient been admitted in last 30 No days? Prior Living Arrangements House Household Members significant other Type of transporation used prior to Drives own vehicle admit Independent with ADL's Yes Is patient alert and oriented? Yes Caregiver for Another No Community Services used prior to Physical Therapy admission: Patient/Family Preference OP PT Therapy Barriers to Discharge No Discharge Plan Home Community Services Physical Therapy Transportation Arrangement Sig Other bedside and can transport Referrals Initiated None needed Whiteboard Updated in Patient Room with Yes name and ext. # of Political Science Faculty Member Review Status In Process Please Provide Date Initial DC 11/01/22 Assessment Was Performed Next Review Type Continued Stay Review Pre-Anesthesia Assessment Start: 10/24/22 12:41 Freq: Status: Complete Protocol: Document 10/24/22 12:41 CAB (Rec: 10/24/22 13:39 CAB [id number]) Pre-Anesthesia Assessment Preferred Name Joselin Patient Information Reviewed Via Chart Review Diagnostic Results BMP/CMP,CBC,EKG Comment Labs/EKG @ [facility] 08/28/22 Primary Care Provider Bonnie Schmitz Seen Specialist in Last 12 Months Yes Specialist Seen ENT,Orthopedist Comment Last pulmonary visit 12/16/19- scanned, follow-up prn Primary Language Macedonian Preferred Language Macedonian 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 No Height 157.48 cm Weight 101.605 kg Body Mass Index (BMI) 40.9 Hearing Ability Normal Visual Assist Magnifying Glass Dentition Type Teeth, Natural Present Barriers to Learning None Hx Anesthesia Reactions No Hx Family Anesthesia Reaction No Hx Malignant Hyperthermia No Hx Blood Transfusions No Hx Blood Transfusion Reaction No Anesthesia Review Requested No Cable Braider No alcohol intake current alcohol intake frequency a few times a month Smoking Status Former smoker how long ago did patient quit smoking >35 yrs ago Substance Use Type does not use Pain Present Pain Reported Musculoskeletal Symptoms Abnormal Gait,Difficulty Walking,Joint Pain History of Falling (Recent or History of Yes ) Patient is completely paralyzed or No completely immobile Mental Status Oriented to own ability Is patient on oxygen? 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 No Cardiac Clearance Received Not Applicable Diet Type At Home Regular,Gluten Free Dysphagia No: Pt denies any difficulties Gastrointestinal Symptoms Reflux Urinary Catheter Present No Hx Urinary Self Catheterization No Diabetes No: Pre-diabetes HgbA1C 5.3 Date 08/28/22 Patient No Lactating No Hx Drug Resistant Organism No Presence of External or Internal Medical No Devices Received a COVID vaccine? Yes Received all doses? Yes Marital Status Single Lives With significant other Current Living Arrangements House Number of Floors (Floors) One Floor Support System Child/Children,Significant Other Does the Patient Have Assistance After Yes: Daughter will assist with Surgery care @ [place] Patient Discharge Plan Description Return Home Comment Pt advised same day surgery per surgeon Feels Safe in Current Environment Yes Been Physically Hurt or Threatened By a No Person in Current Environment Do you have thoughts of harming yourself None or others? Are you currently considering suicide? No Do you have a plan to hurt yourself or No Plan others? Do You Have Any Spiritual Beliefs That No May Affect Your HC Choices? Do You Have Any Cultural Practices That No May Affect Your HC Choices? Comment [employer]-Protestant Who Can We Speak to About Patient's Care Family, friends Identifying Code for Release of Patient Declines to issue Information Health Care Proxy/Next of Kin Awa (daughter) Health Care Proxy Emergency Contact Name Dave (S.O.) Emergency Contact Advance Directives? Yes Advance Directives on File No Requested Patient Bring Advanced Yes Directives DOS Power of Senior Asp Net Developer Yes Power of Senior Asp Net Developer Name Awa (daughter) Jeremy ( son) Power of Senior Asp Net Developer Phone Number Awa: [phone] Jeremy : [phone] PAC Instructions Bring CPAP/BIPAP,Do not shave/ clip surgical site,Durable medical equipment,Medications to take/avoid,Nasal antibiotic ,No ETOH/petroleum product on skin DOS,NPO,Post-op transportation,Pre-surgical wash,Sensory aids,Sturdy shoes /comfortable clothes,Do not bring valuables and remove jewelry
[2022-11-01 12:19] VITALS: BP 139/66; PULSE 76; RESP 18; TEMP 36.2; O2SAT 94
--- NOTE | 2022-11-01 12:56 | PT-IP ANOTE ---
Pt refused PT as this time, doesn't feel it's needed, worked with PT Bobby this morning. Pt's BP has improved and possible D/C today.
--- NOTE | 2022-11-01 15:41 | PC.NURSE ---
Discharge: Feels ready to d/c to home. When up with Physical therapy BP down to 73/35. HR 54. Pt felt sweaty, sl sob, dizzy. PA was notified and see order for IV fluid bolus. This was given. BP back up to the 100's to 120's systolic both laying down and standing. Not dizzy or sweaty, no sob, did amb a short distance and BP was still 126 systolic. So patient was seen twice by PA, this Am and then at time of decreased bp/hr. Losartan and metoprolol held. PA aware of same. Hold meds for now, however if it lasts longer than 2 days she needs to contact her HCP. D/c instructions were given by PA x2. Seen by PT and she has passed and knows her total knee precautions. She is following them. Discussed wound care and JANESSA drain. She is tolerating her diet w/out problems. Po pain meds have been effective. She is aware her anesth will wear off and she may need to be more consistent with her pain meds if her leg becomes more painfull. She is voiding w/out diff. She has her scripts already at home. She has a daughter who will be helping at home. Reviewed discharge packet. Questions answered. Pt d/c to home via auto with dtr.
== END 2022-11-01 15:35 | disposition home or self-care (01) ==
LOC: OR 09:16 → AC 13:26
PROVIDERS: PCP Nurse Practitioner; Referring Provider Orthopaedic Surgery; Visit Provider Orthopaedic Surgery
PROC: 0SRD0JZ Replacement of Left Knee Joint with Synthetic Substitute, Open Approach (ICD-10-PCS; CPT 27447; principal; 2022-10-31 11:15)
DX: M17.12 Unilateral primary osteoarthritis, left knee (principal); Z20.822 Contact with and (suspected) exposure to COVID-19; I10 Essential (primary) hypertension; G47.33 Obstructive sleep apnea (adult) (pediatric)
CPT/HCPCS: 27447; 36415; 73560; 82962; 85014; 85018; 87635; 97110; 97116; 97161; 97530; C1776; C9803; C9290; J0171; J0690; J1100; J2250; J2405; J2704; J3010; J3490

== ENCOUNTER → 2023-09-23 09:29 | Outpatient (CLI) | payer OTHER, SELFPAY ==
[2022-10-31 13:45] VITALS: BMI 41.5
--- NOTE | 2023-09-23 09:31 | DI.MG.S_ITS ---
BILATERAL DIGITAL SCREENING MAMMOGRAM 3D/2D WITH CAD: 09/23/2023 CLINICAL: Routine screening. Comparison is made to exams dated: 09/16/2022 mammogram, 07/23/2021 mammogram, and 07/22/2020 mammogram - [facility]. There are scattered areas of fibroglandular density in both breasts (category b / 25%-50% glandular tissue). Current study was also evaluated with a Computer Aided Detection (CAD) system. No significant masses, calcifications, or other findings are seen in either breast. There has been no significant interval change. IMPRESSION: NEGATIVE There is no mammographic evidence of malignancy. A 1 year screening mammogram is recommended. Based on the Tyrer Cuzick model (a risk assessment model) the patient's lifetime risk is 4.4% and her 10 year risk is 2.8%. According to the ACR, ACS, and NCCN guidelines, an annual breast MRI exam along with mammogram is recommended if the patient's lifetime risk is 20% or greater. This exam was interpreted at Station ID: [id number]. NOTE: For mammograms, a report in lay terms will be sent to the patient. Approximately 15% of breast malignancies will not be visualized mammographically. In the management of a palpable breast mass, a negative mammogram must not discourage biopsy of a clinically suspicious lesion. Electronically Signed By: Lexy moore/maico:09/23/2023 16:34:20 letter sent: Normal Exam ACR BI-RADS Category 1: Negative [id number]
== END ==
LOC: MAMMO 09:31
PROVIDERS: PCP Nurse Practitioner; Referring Provider Nurse Practitioner; Visit Provider Nurse Practitioner
DX: Z12.31 Encounter for screening mammogram for malignant neoplasm of breast (principal); R92.323 Mammographic fibroglandular density, bilateral breasts
CPT/HCPCS: 77063; 77067

== ENCOUNTER → 2024-10-06 14:40 | Outpatient (CLI) | payer MEDICARE, SELFPAY ==
[2022-10-31 13:45] VITALS: BMI 41.5
--- NOTE | 2024-10-06 14:42 | DI.MG.S_ITS ---
MM screening mammo BI: 10/06/2024. BI-RADS: 1 CLINICAL: 69-year old female for bilateral screening mammogram. Tyrer-Cuzick lifetime risk of 3.4%. No personal or first-degree family history of breast cancer. PRIOR EXAMS: 09/23/2023, 09/16/2022, 07/23/2021. MAMMOGRAPHY TECHNIQUE: 2D and 3D (tomosynthesis) digital mammographic views obtained, with additional images as needed for full coverage. Current study was also evaluated with a Computer Aided Detection (CAD) system. DENSITY B. There are scattered areas of fibroglandular density. MAMMOGRAPHY FINDINGS Bilateral: No suspicious mass, asymmetry, microcalcification, or other abnormality seen. IMPRESSION: * No evidence of malignancy. RECOMMENDATIONS Bilateral * Annual screening mammography. OVERALL ASSESSMENT CATEGORY BI-RADS-1: Negative. The [employer] recommends annual screening mammography beginning at age 40 for women with average risk of breast cancer. ELECTRONICALLY SIGNED: Antonio Francis M.D. on 10/07/2024 at 01:33:56 PM Interpreting Station ID: [id number]
== END ==
PROVIDERS: PCP Nurse Practitioner; Referring Provider Nurse Practitioner; Visit Provider Nurse Practitioner
DX: Z12.31 Encounter for screening mammogram for malignant neoplasm of breast (principal)
CPT/HCPCS: 77063; 77067